=== PATIENT | female | born 1970 ===

== ENCOUNTER 2016-06-03 21:26 | Emergency (ER) | payer BC, MEDICAID ==
[2016-06-03 21:26] VITALS: BMI 24.0
[2016-06-03 21:34] VITALS: BP 120/75; PULSE 77; RESP 18; TEMP 98.1; O2SAT 98
--- NOTE | 2016-06-03 22:38 | ED PDOC ---
HPI: General Adult Time Seen by Provider: 06/03/16 21:47 Chief Complaint (Nursing): Chest Pain Chief Complaint (Provider): Back Pain/Right Shoulder Pain History Per: Patient History/Exam Limitations: no limitations Onset/Duration Of Symptoms: Days (x1 week) Additional Complaint(s): 21:47 Mckenna Paul is a 45 year old female with a history of chronic back pain that presents to the ED with a chief complaint of right-sided back pain in the lumbar area that she has been experiencing for the past week along with associated right shoulder pain and paresthesia radiating down to her right hand that she has been experiencing for the past three weeks, the latter of which is exacerbated when she moves her shoulder around. Patient states that although she has chronic back pain, this is different from the pain she usually experiences, and that it is not improving with her home medications (Motrin and Dilaudid). Patient also complains of "pins and needles" in her feet bilaterally that has been ongoing for the past few months. PMD: [facility] Past Medical History Reviewed: Historical Data, Nursing Documentation, Vital Signs Vital Signs: Last Vital Signs Temp 98.1 F 06/03/16 21:31 Pulse 77 06/03/16 21:31 Resp 18 06/03/16 21:31 BP 120/75 06/03/16 21:31 Pulse Ox 98 06/03/16 22:46 - Medical History PMH: Back Problems Denies: Chronic Kidney Disease - Surgical History Surgical History: (x 4) Other surgeries: Left Foot bunion surgery - Family History Family History: States: Unknown Family Hx - Social History Current smoker - smoking cessation education provided: No Alcohol: None Drugs: Denies - Home Medications Home Medications: Ambulatory Orders Medication Instructions Recorded Doxycycline Hyclate 100 mg PO BID #28 cap 10/08/15 metroNIDAZOLE [Flagyl] 500 mg PO BID #28 tab 10/08/15 oxyCODONE/Acetaminophen [Percocet 1 ea PO Q6H PRN #15 tab 12/31/15 5/325 mg Tab] Cyclobenzaprine [Cyclobenzaprine 10 mg PO TID #10 tab 01/26/16 HCl] Methylprednisolone [Medrol Dose 4 mg PO DAILY #21 tab 01/26/16 Pack (21 tabs)] Cyclobenzaprine [Flexeril] 5 mg PO Q8 PRN 3 Days 04/03/17 Ibuprofen [Motrin Tab] 600 mg PO Q8 PRN #60 tab 06/03/16 traMADol [Ultram] 50 mg PO TID PRN 3 Days 06/03/16 - Allergies Allergies/Adverse Reactions: Allergies Allergy/AdvReac Type Severity Reaction Status Date / Time peanut Allergy ANAPHYLAXIS Verified 10/08/15 14:46 Penicillins Allergy ANAPHYLAXIS Verified 10/08/15 14:46 Review of Systems Musculoskeletal: Positive for: Shoulder Pain (right shoulder), Back Pain, Foot Pain ("pins and needles" in feet bilaterally) Physical Exam - Reviewed Nursing Documentation Reviewed: Yes Vital Signs Reviewed: Yes - Physical Exam Appears: Positive for: Non-toxic, In Acute Distress (in minimal painful distress ) Head Exam: Positive for: ATRAUMATIC, NORMOCEPHALIC Skin: Positive for: Normal Color, Warm Eye Exam: Positive for: EOMI, PERRL ENT: Positive for: Normal ENT Inspection, Pharynx Is (clear), Other (mucous membranes moist) Neck: Positive for: Normal, Painless ROM, Supple Cardiovascular/Chest: Positive for: Regular Rate, Rhythm. Negative for: Murmur Respiratory: Positive for: Normal Breath Sounds. Negative for: Wheezing Gastrointestinal/Abdominal: Positive for: Soft. Negative for: Tenderness Pelvic Exam: Positive for: Other Back: Positive for: Other (mild tenderness to paraspinal area, tenderness at right SI joint. No midline tenderness to palpation. ) Extremity: Positive for: Normal ROM (ROM active and passive of right shoulder are normal, but does elicit pain. ), Other (5/5 strength isolated lower extremities. Light touch intact bilateral lower extremities. Negative bilateral straight leg raise.). Negative for: Tenderness (no tenderness to palpation of right shoulder. ) Neurologic/Psych: Positive for: Alert, Oriented. Negative for: Motor/Sensory Deficits - Laboratory Results Result Diagrams: 06/03/16 22:39 06/03/16 22:39 - ECG O2 Sat by Pulse Oximetry: 98 (RA) Pulse Ox Interpretation: Normal Medical Decision Making Medical Decision Makin:04 Initial Impression: Pain (Multiple Site), r/o Fracture Initial Plan: * CMP * CBC * Urine Drug Screen * Urine * Urine dip * Magnesium * Phosphorous * Flexeril 10 mg PO * Toradol 15 mg IV * X-Ray LS Spine AP/Lat * X-Ray Right Shoulder * Reevaluation Scribe Attestation: Documented by Marii Han, acting as a scribe for Shayla Prado MD. Provider Scribe Attestation: All medical record entries made by the Scribe were at my direction and personally dictated by me. I have reviewed the chart and agree that the record accurately reflects my personal performance of the history, physical exam, medical decision making, and the department course for this patient. I have also personally directed, reviewed, and agree with the discharge instructions and disposition Disposition - Clinical Impression Clinical Impression: Shoulder pain, Back pain - Disposition Referrals: [facility] [Provider Group] (CALL TOMORROW FOR FOLLOW UP APPOINTMENT IN 24-48 HOURS) Disposition: Routine/Home Disposition Time: 23:45 Condition: STABLE Prescriptions: Cyclobenzaprine [Flexeril] 5 mg PO Q8 PRN 3 Days PRN Reason: muscle spasm Ibuprofen [Motrin Tab] 600 mg PO Q8 PRN #60 tab PRN Reason: Pain, Moderate (4-7) traMADol [Ultram] 50 mg PO TID PRN 3 Days PRN Reason: SEVERE PAIN ONLY Instructions: Narcotic Pain Management (ED), Chronic Back Pain (ED), Shoulder Pain (ED)
[2016-06-03 22:50] LABS: BASO # 0.1 K/uL (0.0-0.2); BASO % 1.2 % (0.0-2.0); EOS # 0.2 K/uL (0.0-0.7); EOS % 2.1 % (0.0-4.0); LYMPH # 3.2 K/uL (1.0-4.3); LYMPH % 39.9 % (20.0-40.0); MEAN CELL VOLUME 93.6 fl (81.0-99.0); MEAN CORPUSCULAR HEMOGLOBIN 31.4 pg (27.0-31.0); MEAN CORPUSCULAR HGB CONC 33.6 g/dL (33.0-37.0); MEAN PLATELET VOLUME 9.3 fl (7.2-11.7); MONO # 0.7 K/uL (0.0-0.8); MONO % 8.1 % (0.0-10.0); NEUT # 3.9 K/uL (1.8-7.0); NEUT % 48.7 % (50.0-75.0); NRBC % 0.1 % (0.0-0.0); RED CELL DISTRIBUTION WIDTH 14.3 % (11.5-14.5); WHITE BLOOD COUNT 8.1 K/uL (4.8-10.8)
[2016-06-03 23:01] LABS: ALB/GLOB RATIO 1.3 (1.0-2.1); ALKALINE PHOSPHATASE 64 U/L (38-126); ALT/SGPT 25 U/L (9-52); AST/SGOT 31 U/L (14-36); BILIRUBIN,TOTAL 0.3 mg/dl (0.2-1.3); BLOOD UREA NITROGEN 8 mg/dl (7-17); CALCIUM 9.2 mg/dL (8.4-10.2); CARBON DIOXIDE 25 mmol/L (22-30); CHLORIDE 105 mmol/L (98-107); GFR AFRICAN-AMERICAN > 60; GLUCOSE,RANDOM 87 mg/dL (65-105); MAGNESIUM 1.9 MG/DL (1.6-2.3); POTASSIUM 3.8 MMOL/L (3.6-5.0); SODIUM 142 mmol/l (132-148); TOTAL PROTEIN 7.7 G/DL (6.3-8.2)
[2016-06-03] MEDS ORDERED: Oxycodone/Acetaminophen 5/325 mg Tab ONE (23:08)
[2016-06-03] MEDS ORDERED: Oxycodone/Acetaminophen 5/325 mg Tab PO STA (23:10)
--- NOTE | 2016-06-04 10:25 | RAD ---
PROCEDURE: Radiographs of the Lumbar Spine. HISTORY: RIGHT lumbar and SI jt pain COMPARISON: None available. FINDINGS: BONES: Alignment appears satisfactory. No listhesis. No acute displaced fracture identified. Small anterior osteophyte formation. Facet hypertrophy. DISC SPACES: Intervertebral disc space narrowing most prominent at L5-S1 with evidence of vacuum disc phenomenon at that level. OTHER FINDINGS: None. IMPRESSION: Mild degenerative changes as above. No acute displaced fracture or subluxation identified.
--- NOTE | 2016-06-04 10:26 | RAD ---
PROCEDURE: Radiographs of the Right Shoulder HISTORY: RIGHT shoulder pain COMPARISON: None available FINDINGS: BONES: No acute displaced fracture. The distal clavicle and underlying ribs appear intact. JOINTS: No acute dislocation. SOFT TISSUES: Soft tissues appear unremarkable. No evidence of radiopaque foreign body. IMPRESSION: No acute displaced fracture or dislocation evident. If symptoms persist or if there is continued clinical concern, x-ray follow-up in 7-10 days should be considered.
== END 2016-06-04 00:20 | disposition home or self-care (01) ==
LOC: H.ER 21:26
DX: M25.511 Pain in right shoulder (principal); M54.9 Dorsalgia, unspecified; R20.2 Paresthesia of skin; R07.9 Chest pain, unspecified
CPT/HCPCS: 72100; 73030; 80053; 81025; 83735; 84100; 85025; 96374; 99284; G0480; J1885

== ENCOUNTER 2017-05-12 09:38 | Emergency (ER) | payer BC, MEDICAID ==
[2017-05-12 09:38] VITALS: BMI 24.0
--- NOTE | 2017-05-12 10:16 | ED PDOC ---
HPI: Abdomen Time Seen by Provider: 05/12/17 10:05 Chief Complaint (Nursing): Abdominal Pain History Per: Patient Onset/Duration Of Symptoms: Days (2) Current Symptoms Are (Timing): Still Present Severity: Moderate Pain Scale Rating Of: 5 Location Of Pain/Discomfort: RUQ, Epigastric Quality Of Discomfort: Sharp Associated Symptoms: Nausea, Vomiting. denies: Fever Exacerbating Factors: None Alleviating Factors: None Additional Complaint(s): Epigastric and RUQ abd pain x 2 days assoc with nausea and vomiting. Denies fever or diarrhea Past Medical History Vital Signs: Last Vital Signs Temp 97.0 F L 05/12/17 09:56 Pulse 61 05/12/17 09:56 Resp 30 H 05/12/17 09:56 BP 133/93 H 05/12/17 09:56 Pulse Ox 100 05/12/17 13:57 - Medical History PMH: Back Problems Denies: Chronic Kidney Disease - Surgical History Surgical History: (x 4) - Family History Family History: States: Unknown Family Hx - Home Medications Home Medications: Ambulatory Orders Medication Instructions Recorded Doxycycline Hyclate 100 mg PO BID #28 cap 10/08/15 metroNIDAZOLE [Flagyl] 500 mg PO BID #28 tab 10/08/15 oxyCODONE/Acetaminophen [Percocet 1 ea PO Q6H PRN #15 tab 12/31/15 5/325 mg Tab] Cyclobenzaprine [Cyclobenzaprine 10 mg PO TID #10 tab 01/26/16 HCl] Methylprednisolone [Medrol Dose 4 mg PO DAILY #21 tab 01/26/16 Pack (21 tabs)] Cyclobenzaprine [Flexeril] 5 mg PO Q8 PRN 3 Days tab 06/03/16 Ibuprofen [Motrin Tab] 600 mg PO Q8 PRN #60 tab 06/03/16 traMADol [Ultram] 50 mg PO TID PRN 3 Days tab 06/03/16 Dicyclomine [Dicyclomine HCl] 10 mg PO Q8 #10 cap 05/12/17 Famotidine [Pepcid] 20 mg PO Q12 #20 tab 05/12/17 Ondansetron [Zofran] 4 mg PO Q8H #10 tab 05/12/17 - Allergies Allergies/Adverse Reactions: Allergies Allergy/AdvReac Type Severity Reaction Status Date / Time peanut Allergy ANAPHYLAXIS Verified 10/08/15 14:46 Penicillins Allergy ANAPHYLAXIS Verified 10/08/15 14:46 Review of Systems ROS Statement: Except As Marked, All Systems Reviewed And Found Negative Gastrointestinal: Positive for: Nausea, Vomiting, Abdominal Pain Physical Exam - Reviewed Nursing Documentation Reviewed: Yes Vital Signs Reviewed: Yes - Physical Exam Appears: Positive for: Non-toxic, Uncomfortable Head Exam: Positive for: ATRAUMATIC, NORMAL INSPECTION, NORMOCEPHALIC Skin: Positive for: Normal Color, Warm, DRY Eye Exam: Positive for: EOMI, Normal appearance, PERRL ENT: Positive for: Normal ENT Inspection Neck: Positive for: Normal, Painless ROM Cardiovascular/Chest: Positive for: Regular Rate, Rhythm Respiratory: Positive for: CNT, Normal Breath Sounds Gastrointestinal/Abdominal: Positive for: Bowel Sounds, Soft, Tenderness ( Epigastric and RUQ) Back: Positive for: Normal Inspection Extremity: Positive for: Normal ROM Neurologic/Psych: Positive for: Alert, Oriented - Laboratory Results Result Diagrams: 05/12/17 10:40 05/12/17 10:40 - ECG O2 Sat by Pulse Oximetry: 100 - Progress Re-evaluation Time: 14:36 Condition: Improved (Wants to go home pain better) Medical Decision Making Medical Decision Making: Time: 13:50 CT Abdomen and Pelvis with Contrast FINDINGS: LOWER THORAX: Unremarkable. LIVER: Unremarkable. No gross lesion or ductal dilatation. GALLBLADDER AND BILE DUCTS: Unremarkable. PANCREAS: Unremarkable. No gross lesion or ductal dilatation. SPLEEN: Unremarkable. ADRENALS: Unremarkable. No mass. KIDNEYS AND URETERS: Unremarkable. No hydronephrosis. No solid mass. VASCULATURE: Unremarkable. No aortic aneurysm. BOWEL: Unremarkable. No obstruction. No gross mural thickening. APPENDIX: Normal retrocecal appendix. PERITONEUM: Trace free fluid identified in the pelvis/cul de sac. LYMPH NODES: Unremarkable. No enlarged lymph nodes. BLADDER: Unremarkable. REPRODUCTIVE: Unremarkable. BONES: No acute fracture. Subchondral sclerosis, eburnation and cyst formation left acetabulum without obvious avascular necrosis in the femoral head OTHER FINDINGS: None. IMPRESSION: No acute findings related to/accounting for the clinical presentation. Additional benign and/or incidental findings described above. No significant interval change compared to the prior examination(s). Scribe Attestation: Documented by Albin Hyatt, acting as a scribe for Bradley Ramos MD. Disposition - Clinical Impression Clinical Impression: Gastritis - Patient ED Disposition Is Patient to be Admitted: No Counseled Patient/Family Regarding: Studies Performed, Diagnosis, Need For Followup, Rx Given - Disposition Referrals: [facility] [place] [Outside] Disposition: Routine/Home Disposition Time: 14:37 Condition: FAIR Prescriptions: Dicyclomine [Dicyclomine HCl] 10 mg PO Q8 #10 cap Famotidine [Pepcid] 20 mg PO Q12 #20 tab Ondansetron [Zofran] 4 mg PO Q8H #10 tab Instructions: Gastritis (DC) Forms: [employer] (Khmer)
[2017-05-12] MEDS: Sodium Chloride 0.9% 1,000 ML IV STA ×2 (10:19→10:23)
[2017-05-12 10:56] LABS: BASO # 0.1 K/uL (0.0-0.2); EOS # 0.1 K/uL (0.0-0.7); LYMPH # 2.1 K/uL (1.0-4.3); MONO # 0.5 K/uL (0.0-0.8); RED CELL DISTRIBUTION WIDTH 13.5 % (11.5-14.5); WHITE BLOOD COUNT 5.8 K/uL (4.8-10.8)
[2017-05-12 11:07] LABS: ALB/GLOB RATIO 1.2 (1.0-2.1); ALT/SGPT 25 U/L (9-52); AST/SGOT 23 U/L (14-36); BLOOD UREA NITROGEN 14 mg/dl (7-17); CALCIUM 9.1 mg/dL (8.4-10.2); GFR AFRICAN-AMERICAN > 60; GFR NON-AFRICAN AMERICAN > 60; LIPASE 93 U/L (23-300)
[2017-05-12] MEDS ORDERED: Iohexol 300 100 ML IJ ONE (12:44)
[2017-05-12 13:19] LABS: BASO % 1.2 % (0.0-2.0); EOS % 2.3 % (0.0-4.0); LYMPH % 35.7 % (20.0-40.0); MEAN CELL VOLUME 95.9 fl (81.0-99.0); MEAN CORPUSCULAR HEMOGLOBIN 32.6 pg (27.0-31.0); MEAN CORPUSCULAR HGB CONC 33.9 g/dL (33.0-37.0); MEAN PLATELET VOLUME 8.4 fl (7.2-11.7); MONO % 9.3 % (0.0-10.0); NEUT % 51.5 % (50.0-75.0); NRBC % 0.1 % (0.0-0.0); RBC 3.7 Mil/uL (3.80-5.20)
--- NOTE | 2017-05-12 13:52 | CT ---
PROCEDURE: CT Abdomen and Pelvis with contrast HISTORY: Epigastric/RUQ abd pain COMPARISON: 01/26/2016. CT abdomen and pelvis TECHNIQUE: Contrast dose: 95 cc Omnipaque 300 Radiation dose: Total exam DLP = 325.22 mGy-cm. This CT exam was performed using one or more of the following dose reduction techniques: Automated exposure control, adjustment of the mA and/or kV according to patient size, and/or use of iterative reconstruction technique. FINDINGS: LOWER THORAX: Unremarkable. LIVER: Unremarkable. No gross lesion or ductal dilatation. GALLBLADDER AND BILE DUCTS: Unremarkable. PANCREAS: Unremarkable. No gross lesion or ductal dilatation. SPLEEN: Unremarkable. ADRENALS: Unremarkable. No mass. KIDNEYS AND URETERS: Unremarkable. No hydronephrosis. No solid mass. VASCULATURE: Unremarkable. No aortic aneurysm. BOWEL: Unremarkable. No obstruction. No gross mural thickening. APPENDIX: Normal retrocecal appendix. PERITONEUM: Trace free fluid identified in the pelvis/cul de sac. LYMPH NODES: Unremarkable. No enlarged lymph nodes. BLADDER: Unremarkable. REPRODUCTIVE: Unremarkable. BONES: No acute fracture. Subchondral sclerosis, eburnation and cyst formation left acetabulum without obvious avascular necrosis in the femoral head OTHER FINDINGS: None. IMPRESSION: No acute findings related to/accounting for the clinical presentation. Additional benign and/or incidental findings described above. No significant interval change compared to the prior examination(s).
[2017-05-12 14:57] VITALS: BP 120/70; PULSE 74; RESP 20; TEMP 98.6; O2SAT 98
--- NOTE | 2017-05-12 17:56 | CARD ---
APPROVED REPORT EKG Measurement Heart [id number] OR [id number] [id number] <Conclusion> Normal sinus rhythm Normal ECG
== END 2017-05-12 14:59 | disposition home or self-care (01) ==
LOC: H.ER 09:38
DX: K29.70 Gastritis, unspecified, without bleeding (principal); Z88.0 Allergy status to penicillin
CPT/HCPCS: 74177; 80053; 81025; 83690; 85025; 93005; 96361; 96374; 96375; 96376; 99283; J2405; J7040; Q9967

== ENCOUNTER 2017-09-03 07:06 | Emergency (ER) | payer BC, MEDICAID ==
[2017-09-03 07:06] VITALS: BMI 24.0
[2017-09-03 07:22] VITALS: O2SAT 98
--- NOTE | 2017-09-03 07:37 | ED PDOC ---
HPI: General Adult Time Seen by Provider: 09/03/17 07:09 Chief Complaint (Nursing): ENT Problem Chief Complaint (Provider): throat pain History Per: Patient History/Exam Limitations: no limitations Onset/Duration Of Symptoms: Days (x yesterday) Current Symptoms Are (Timing): Still Present Additional Complaint(s): 47-year-old female presents to ED with right-sided sore throat, ongoing since yesterday. Pt reports mild diffuse headache, but not worse headache in her life. (-) cough, (-) congestion, (-) runny nose, (-) neck pain, (-) dizziness, ( -) nausea, (-) vomiting, (-) shortness of breath, (-) chest pain, (-) numbness, (-) tingling, (-) visual changes. Took tylenol yesterday with some relief. PMD: [place]. Past Medical History Reviewed: Historical Data, Nursing Documentation, Vital Signs Vital Signs: Last Vital Signs Temp 99.0 F 09/03/17 07:22 Pulse 67 09/03/17 07:22 Resp 20 09/03/17 07:22 BP 95/60 L 09/03/17 07:22 Pulse Ox 98 09/03/17 09:14 - Medical History PMH: Back Problems Denies: Chronic Kidney Disease - Surgical History Surgical History: (x 4) - Family History Family History: States: Unknown Family Hx - Home Medications Home Medications: Ambulatory Orders Medication Instructions Recorded Doxycycline Hyclate 100 mg PO BID #28 cap 10/08/15 metroNIDAZOLE [Flagyl] 500 mg PO BID #28 tab 10/08/15 oxyCODONE/Acetaminophen [Percocet 1 ea PO Q6H PRN #15 tab 12/31/15 5/325 mg Tab] Cyclobenzaprine [Cyclobenzaprine 10 mg PO TID #10 tab 01/26/16 HCl] Methylprednisolone [Medrol Dose 4 mg PO DAILY #21 tab 01/26/16 Pack (21 tabs)] Cyclobenzaprine [Flexeril] 5 mg PO Q8 PRN 3 Days tab 06/03/16 Ibuprofen [Motrin Tab] 600 mg PO Q8 PRN #60 tab 06/03/16 traMADol [Ultram] 50 mg PO TID PRN 3 Days tab 04/03/17 Dicyclomine [Dicyclomine HCl] 10 mg PO Q8 #10 cap 05/12/17 Famotidine [Pepcid] 20 mg PO Q12 #20 tab 05/12/17 Ondansetron [Zofran] 4 mg PO Q8H #10 tab 05/12/17 Ibuprofen [Motrin] 600 mg PO TID 7 Days tab 09/03/17 - Allergies Allergies/Adverse Reactions: Allergies Allergy/AdvReac Type Severity Reaction Status Date / Time morphine Allergy ANAPHYLAXIS Verified 09/03/17 07:34 peanut Allergy ANAPHYLAXIS Verified 09/03/17 07:34 Penicillins Allergy ANAPHYLAXIS Verified 09/03/17 07:34 Review of Systems Constitutional: Negative for: Fever, Weakness ENT: Positive for: Throat Pain. Negative for: Nose Congestion, Other (runny nose) Cardiovascular: Negative for: Chest Pain Respiratory: Negative for: Cough, Shortness of Breath Gastrointestinal: Negative for: Nausea, Vomiting Musculoskeletal: Negative for: Neck Pain Neurological: Negative for: Numbness, Dizziness, Other (tingling) Physical Exam - Reviewed Nursing Documentation Reviewed: Yes Vital Signs Reviewed: Yes - Physical Exam Appears: Positive for: Well Head Exam: Positive for: ATRAUMATIC, NORMAL INSPECTION, NORMOCEPHALIC Skin: Positive for: Normal Color Eye Exam: Positive for: Normal appearance ENT: Positive for: Normal ENT Inspection, Pharyngeal Erythema (mild erythema in the posterior pharynx area). Negative for: Tonsillar Exudate Neck: Positive for: Normal Cardiovascular/Chest: Positive for: Regular Rate, Rhythm Respiratory: Positive for: Normal Breath Sounds (Lungs clear) Back: Positive for: Normal Inspection. 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 Negative for : Motor/Sensory Deficits, Facial Droop - Laboratory Results Interpretation Of Abn Labs: no acute Urine POC: Negative - ECG O2 Sat by Pulse Oximetry: 98 (RA) Pulse Ox Interpretation: Normal - Progress ED Course And Treament: 917: Feels much better. No pain. AAOx3. Tolerated PO. Fu with pcp. Likely viral infection. Medical Decision Making Medical Decision Making: Time: 07:36 Impression(s): Throat Pain Plan: - Toradol 15 mg IM - Rapid Strep Group A Antigen Stat (-) Rapid Strep Group A Antigen Stat (-) POC Urine Test Scribe Attestation: Documented by Albin Hyatt, acting as a scribe for Clayton Fierro MD. Provider Scribe Attestation: All medical record entries made by the Scribe were at my direction and personally dictated by me. I have reviewed the chart and agree that the record accurately reflects my personal performance of the history, physical exam, medical decision making, and the department course for this patient. I have also personally directed, reviewed, and agree with the discharge instructions and disposition. Disposition - Clinical Impression Clinical Impression: URI (upper respiratory infection) - Patient ED Disposition Is Patient to be Admitted: No Counseled Patient/Family Regarding: Studies Performed, Diagnosis, Need For Followup, Rx Given - Disposition Referrals: [facility] [place] [Outside] - 09/04/17 Disposition: Routine/Home Disposition Time: 09:18 Condition: STABLE Additional Instructions: Return if not better in 3 days. Prescriptions: Ibuprofen [Motrin] 600 mg PO TID 7 Days tab Instructions: Viral Upper Respiratory Infection, Adult (DC) Forms: [employer] ([place]), [facility] ED School/Work Excuse
[2017-09-03 09:27] VITALS: BP 101/60; PULSE 64; RESP 17; TEMP 98.6
== END 2017-09-03 09:27 | disposition home or self-care (01) ==
LOC: H.ER 07:06
DX: J06.9 Acute upper respiratory infection, unspecified (principal); Z88.0 Allergy status to penicillin
CPT/HCPCS: 81025; 87070; 87430; 96372; 99283; J1885

== ENCOUNTER 2018-07-16 21:44 | Emergency (ER) | payer BC, MEDICAID ==
[2018-07-16 21:45] VITALS: BMI 24.0
[2018-07-16 21:50] VITALS: BP 115/75; PULSE 81; RESP 16; TEMP 98.5; O2SAT 100
--- NOTE | 2018-07-16 22:27 | ED PDOC ---
Lower Extremity Pain/Injury Time Seen by Provider: 07/16/18 22:21 Chief Complaint (Nursing): Hip Pain Chief Complaint (Provider): Left Hip Pain History Per: Patient History/Exam Limitations: no limitations Onset/Duration Of Symptoms: Hrs (since earlier tonight) Current Symptoms Are (Timing): Still Present Additional Complaint(s): Patient is a 48 year old female who presents for evaluation of left hip pain. Patient reports earlier tonight she was walking to her office when she felt a snapping and stretching sensation to the lateral aspect of the left hip. Patient reports that six weeks ago she injured the same hip while exercising with what she thought was a groin strain because she had similar symptoms as now. Patient reports her current pain is the worst its ever been and radiating down the lower extremity, prompting evaluation. Took no medication GENERAL MAGISTRATE. Denies falls or trauma. Has not sought medical attention for this hip pain until now. Denies recent feve r, loss of sensation. PMD: Dolly CROSS LMP: 06/29/18 Past Medical History Reviewed: Historical Data, Nursing Documentation, Vital Signs Vital Signs: Last Vital Signs Temp 98.5 F 07/16/18 21:49 Pulse 81 07/16/18 21:49 Resp 16 07/16/18 21:49 BP 115/75 07/16/18 21:49 Pulse Ox 100 07/16/18 21:49 Primary Care Provider: Yudy Alberto - Medical History PMH: Back Problems - Surgical History Surgical History: (x 4) Other surgeries: tubal ligation, bunion repair - Family History Family History: States: Unknown Family Hx - Social History Current smoker - smoking cessation education provided: No Ex-Smoker (has not smoked in the last 12 months): Yes Alcohol: None Drugs: Denies - Home Medications Home Medications: Ambulatory Orders Medication Instructions Recorded Doxycycline Hyclate 100 mg PO BID #28 cap 10/08/15 metroNIDAZOLE [Flagyl] 500 mg PO BID #28 tab 10/08/15 oxyCODONE/Acetaminophen [Percocet 1 ea PO Q6H PRN #15 tab 12/31/15 5/325 mg Tab] Cyclobenzaprine [Cyclobenzaprine 10 mg PO TID #10 tab 01/26/16 HCl] Methylprednisolone [Medrol Dose 4 mg PO DAILY #21 tab 01/26/16 Pack (21 tabs)] Cyclobenzaprine [Flexeril] 5 mg PO Q8 PRN 3 Days tab 06/03/16 Ibuprofen [Motrin Tab] 600 mg PO Q8 PRN #60 tab 06/03/16 traMADol [Ultram] 50 mg PO TID PRN 3 Days tab 06/03/16 Dicyclomine [Dicyclomine HCl] 10 mg PO Q8 #10 cap 05/12/17 Famotidine [Pepcid] 20 mg PO Q12 #20 tab 05/12/17 Ondansetron [Zofran] 4 mg PO Q8H #10 tab 05/12/17 Ibuprofen [Motrin] 600 mg PO TID 7 Days tab 09/03/17 Acetaminophen [Acetaminophen 8 650 mg PO Q8 PRN #21 tablet.er 07/16/18 Hour] Meloxicam [Mobic] 15 mg PO DAILY PRN #14 tab 07/16/18 - Allergies Allergies/Adverse Reactions: Allergies Allergy/AdvReac Type Severity Reaction Status Date / Time morphine Allergy ANAPHYLAXIS Verified 07/16/18 21:48 peanut Allergy ANAPHYLAXIS Verified 07/16/18 21:48 Penicillins Allergy ANAPHYLAXIS Verified 07/16/18 21:48 Review of Systems ROS Statement: Except As Marked, All Systems Reviewed And Found Negative Constitutional: Negative for: Fever Musculoskeletal: Positive for: Other (left hip pain) Physical Exam - Reviewed Nursing Documentation Reviewed: Yes Vital Signs Reviewed: Yes - Physical Exam Comments: GENERALIZED APPEARANCE: Patient is awake, alert, oriented x3 in no acute distress. Arrived to the ED ambulatory. SKIN: Warm, dry; (-) cyanosis. EYES: (-) conjunctival injection ENMT: Mucous membranes moist. Airway patent, (-) stridor. NECK:Supple, FROM CHEST AND RESPIRATORY: (-) rales, (-) rhonchi, (-) wheezes; breath sounds equal bilaterally. Respirations even and nonlabored. HEART AND CARDIOVASCULAR: (-) irregularity ABDOMEN AND GI: Soft; (-) tenderness BACK:(-) direct bony tenderness, (-) deformity. EXTREMITIES: (+) diffuse tenderness to left hip, most notable to the proximal IT band (+) decreased ROM of hip secondary to pain (-) obvious deformity (-) extremity shortening or rotation. Sensation intact throughout. Distal pulses good bilaterally. Remainder of lower extremity nontender with FROM. NEURO AND PSYCH: Mental status as above.Normal strength in extension of the knees, plantar and dorsiflexion of the toes. Gait: limping. Speech: clear. - Laboratory Results Urine POC: Negative - ECG O2 Sat by Pulse Oximetry: 100 (RA) Pulse Ox Interpretation: Normal Medical Decision Making Medical Decision Makin Initial Impression: acute hip pain, probable soft tissue injury Plan: -Hip/pelvis XR 4 views -Toradol 30mg IM -Re-evaluation 2304 XR reviewed with no acute bony abnormality as read by Sixto HOGAN. Patient notified this is a preliminary ED reading and she would be notified of any discrepancies via phone. On re-evaluation, patient reports improvement of symptoms. On exam, patient remains AAOx3, in no acute distress. VSS, stable for discharge. Lab/Diagnostic results d/w the patient in great detail. Diagnosis of acute hip pain d/w the patient. Based on history, exam and diagnostic results, plan will be for outpatient follow up with ortho. Patient instructed to follow-up with pmd / referral provided / the clinic in 1- 2 days without fail. Advised to take medication as prescribed. Return to the emergency room at any time for any new or worsening symptoms. Patient states she fully agrees with and understands discharge instructions. States that she agrees with the plan and disposition. Verbalized and repeated discharge instructions and plan. I have given the patient opportunity to ask any additional questions. Disposition - Clinical Impression Clinical Impression: Acute pain of left hip - Patient ED Disposition Is Patient to be Admitted: No Counseled Patient/Family Regarding: Studies Performed, Diagnosis, Need For Followup, Rx Given - Disposition Referrals: Gilberto Liang MD [Staff Provider] - Yudy Alberto APN [Advanced Practice Nurse] - Disposition: Routine/Home Disposition Time: 23:05 Condition: STABLE Additional Instructions: The emergency medical care you received today was directed at your acute symptoms. If you were prescribed any medication, please fill it and take as directed. It may take several days for your symptoms to resolve. Return to the Emergency Department if your symptoms worsen, do not improve, or if you have any other problems. Please contact your doctor in 2 days for re-evaluation and follow up / or call one of the physicians/clinics you have been referred to that are listed on the Patient Visit Information form that is included in your discharge packet. Bring any paperwork you were given at discharge with you along with any medications you are taking to your follow up visit. Our treatment cannot replace ongoing medical care by a primary care provider (PCP) outside of the emergency department. Prescriptions: Acetaminophen [Acetaminophen 8 Hour] 650 mg PO Q8 PRN #21 tablet.er PRN Reason: Pain, Moderate (4-7) Meloxicam [Mobic] 15 mg PO DAILY PRN #14 tab PRN Reason: Pain, Moderate (4-7) Instructions: Groin Strain, Hip Pain, Iliotibial Band Syndrome (DC) Forms: [facility] (Greek) Print Language: ANDORRAN - POA Present On Arrival: None
--- NOTE | 2018-07-17 11:20 | RAD ---
Date of service: 07/16/2018 PROCEDURE: Pelvis and left hip HISTORY: Joint Pain. No history of recent/ related trauma provided. COMPARISON: 01/26/2016. CT abdomen and pelvis including views of the left hip. TECHNIQUE: Three views. FINDINGS: There are no osseous abnormalities to suggest fracture. The pelvic ring is intact. Preserved femoral-acetabular relationship. Negative study for protrusio, subluxation or dislocation. Degenerative changes: Limited to the left hip primarily affecting the acetabulum with subchondral sclerosis and cyst formation. IMPRESSION: Stable degenerative changes left hip/acetabulum. No new/acute findings.
== END 2018-07-16 23:30 | disposition home or self-care (01) ==
LOC: H.ER 21:44
DX: M25.552 Pain in left hip (principal)
CPT/HCPCS: 73503; 81025; 96372; 99284; J1885